=== PATIENT | female | born 2000 | race Caucasian/White ===

== ENCOUNTER 2023-01-06 00:43 | Observation (INO) | payer SELFPAY ==
[2023-01-06 01:11] LABS: BASOPHILS ABSOLUTE AUTO 0.03 K/uL (0.00-0.20); BASOPHILS PERCENT AUTO 0.3 % (0.0-1.0); EOSINOPHILS ABSOLUTE AUTO 0.29 K/uL (0.00-0.45); EOSINOPHILS PERCENT AUTO 3.3 % (0.0-6.0); HEMATOCRIT 26.6 % (37.0-47.0); HEMOGLOBIN 8.5 g/dL (12.0-16.0); IMMATURE GRAN ABSOLUTE AUTO 0.01 K/uL (0.00-0.05); IMMATURE GRAN PERCENT AUTO 0.1 % (0.0-0.4); LYMPHOCYTES ABSOLUTE AUTO 2.09 K/uL (1.00-4.80); MEAN CORPUSCULAR HEMOGLOBIN 23.2 pg (28.0-32.0); MEAN CORPUSCULAR VOLUME 72.5 fL (83.0-99.0); MEAN PLATELET VOLUME 9.9 fL (9.4-12.3); MONOCYTES ABSOLUTE AUTO 0.46 K/uL (0.00-0.80); MONOCYTES PERCENT AUTO 5.3 % (0.0-8.0); NEUTROPHILS ABSOLUTE AUTO 5.82 K/uL (1.80-7.70); PLATELET COUNT,PLT 388 K/uL (150-400); RED BLOOD CELL COUNT 3.67 M/uL (4.10-5.30)
[2023-01-06 01:36] LABS: A/G RATIO 0.9 (0.9-1.6); ALBUMIN 3.1 g/dL (3.4-5.0); BILIRUBIN TOTAL 0.2 mg/dL (0.2-1.0); CALCIUM 9.2 mg/dL (8.5-10.1); CARBON DIOXIDE,CO2 29.4 mmol/L (21.0-32.0); CREATININE 0.7 mg/dL (0.6-1.0); EST CRCL DRUG DOSING (CG) 107.01 mL/min; POTASSIUM,K 3.6 mmol/L (3.5-5.1); PROTEIN TOTAL,TP 6.7 g/dL (6.4-8.2)
[2023-01-06 01:55] LABS: APPEARANCE,URINE SLT CLOUDY; BILIRUBIN,URINE NEGATIVE (NEGATIVE); COLOR,URINE YELLOW; GLUCOSE,URINE NEGATIVE (NEGATIVE); KETONES,URINE NEGATIVE (NEGATIVE); LEUKOCYTE ESTERASE,URINE SMALL (NEGATIVE); NITRITE,URINE POSITIVE (NEGATIVE); OCCULT BLOOD,URINE MODERATE (NEGATIVE); PH,URINE 6.5 (5.0-8.0); PROTEIN,URINE NEGATIVE (NEGATIVE); UROBILINOGEN,URINE 0.2 EU/dL (<2.0)
[2023-01-06 02:03] LABS: AMORPHOUS SEDIMENT,URINE LIGHT (NEGATIVE); BACTERIA,URINE 2+ (NEGATIVE); EPITHELIAL CELLS,URINE FEW (NONE-FEW); MUCUS,URINE LIGHT (NONE-MOD); RBC,URINE 15-20 (0-2/HPF)
[2023-01-06] MEDS ORDERED: Cephalexin 500 MG Cap PO ONE (02:40)
[2023-01-06 03:26] LABS: BASOPHILS ABSOLUTE AUTO 0.05 K/uL (0.00-0.20); BASOPHILS PERCENT AUTO 0.4 % (0.0-1.0); EOSINOPHILS ABSOLUTE AUTO 0.09 K/uL (0.00-0.45); EOSINOPHILS PERCENT AUTO 0.7 % (0.0-6.0); HEMATOCRIT 24.6 % (37.0-47.0); HEMOGLOBIN 7.8 g/dL (12.0-16.0); IMMATURE GRAN ABSOLUTE AUTO 0.02 K/uL (0.00-0.05); IMMATURE GRAN PERCENT AUTO 0.2 % (0.0-0.4); LYMPHOCYTES ABSOLUTE AUTO 1.29 K/uL (1.00-4.80); LYMPHOCYTES PERCENT AUTO 10.2 % (24.0-44.0); MEAN CORPUSCULAR HEMOGLOBIN 22.9 pg (28.0-32.0); MEAN CORPUSCULAR HGB CONC 31.7 g/dL (32.0-36.0); MEAN CORPUSCULAR VOLUME 72.1 fL (83.0-99.0); MEAN PLATELET VOLUME 9.6 fL (9.4-12.3); MONOCYTES ABSOLUTE AUTO 0.61 K/uL (0.00-0.80); MONOCYTES PERCENT AUTO 4.8 % (0.0-8.0); NEUTROPHILS ABSOLUTE AUTO 10.57 K/uL (1.80-7.70); NEUTROPHILS PERCENT AUTO 83.7 % (41.0-71.0); PLATELET COUNT,PLT 358 K/uL (150-400); RED BLOOD CELL COUNT 3.41 M/uL (4.10-5.30); WHITE BLOOD CELL COUNT,WBC 12.63 K/uL (3.9-11.3)
[2023-01-06 03:56] LABS: CANDIDA DNA PROBE NEGATIVE (NEGATIVE); GARDNERELLA DNA PROBE POSITIVE (NEGATIVE); TRICHOMONAS DNA PROBE POSITIVE (NEGATIVE)
[2023-01-06] MEDS ORDERED: metroNIDAZOLE 250 MG Tab PO ONE (04:15)
[2023-01-06 04:24] LABS: C. TRACHOMATIS BY PCR NOT DETECTED; N. GONORRHOEAE BY PCR NOT DETECTED
[2023-01-06] MEDS ORDERED: metroNIDAZOLE/Normal Saline 500 MG in Premix Bag 1 BAG IV STA (06:20)
[2023-01-06] MEDS ORDERED: Sodium Chloride 0.9% 2.5 ML Syringe FLUSH PRN (06:24)
[2023-01-06] MEDS ORDERED: Sodium Chloride 0.9% 10 ML Syringe FLUSH PRN (06:24)
[2023-01-06] MEDS ORDERED: Sodium Chloride 0.9% 20 ML SDV IV PRN (06:24)
[2023-01-06 07:11] LABS: HEMATOCRIT 24.2 % (37.0-47.0); HEMOGLOBIN 7.7 g/dL (12.0-16.0); MEAN CORPUSCULAR HEMOGLOBIN 22.8 pg (28.0-32.0); MEAN CORPUSCULAR HGB CONC 31.8 g/dL (32.0-36.0); MEAN CORPUSCULAR VOLUME 71.8 fL (83.0-99.0); MEAN PLATELET VOLUME 9.7 fL (9.4-12.3); PLATELET COUNT,PLT 359 K/uL (150-400); RED BLOOD CELL COUNT 3.37 M/uL (4.10-5.30); WHITE BLOOD CELL COUNT,WBC 9.42 K/uL (3.9-11.3)
[2023-01-06 07:27] LABS: CREATININE 0.5 mg/dL (0.6-1.0); EST CRCL DRUG DOSING (CG) 149.82 mL/min; POTASSIUM,K 4.1 mmol/L (3.5-5.1)
[2023-01-06] MEDS ORDERED: Ropivacaine 0.5% 5 MG/ML 30 ML SDV ONE (07:47)
[2023-01-06] MEDS ORDERED: Propofol 200 MG/20 ML SDV ONE (07:51)
[2023-01-06] MEDS ORDERED: propofoL 50 ML ONE ×3 (07:51→09:32)
[2023-01-06] MEDS ORDERED: Bupivacaine 0.5%/EPINEPHrine 1:200,000 30 ML SDV ONE (08:05)
[2023-01-06] MEDS ORDERED: Tranexamic Acid 1,000 MG/10 ML Vial ONE (08:10)
[2023-01-06] MEDS ORDERED: Calcium Chloride 10% 1 GM/10 ML Syringe ONE (08:11)
[2023-01-06] MEDS ORDERED: Ondansetron 4 MG/2 ML SDV ONE ×3 (08:11→10:43)
[2023-01-06] MEDS ORDERED: ceFAZolin 1 GM Vial ONE ×2 (08:15)
[2023-01-06] MEDS ORDERED: Dexamethasone 4 MG/ML 5 ML MDV ONE ×2 (08:35)
[2023-01-06] MEDS ORDERED: Rocuronium Bromide 50 MG/5 ML Syringe ONE ×2 (08:35→09:24)
[2023-01-06] MEDS ORDERED: Famotidine 20 MG/2 ML SDV ONE (08:44)
[2023-01-06] MEDS ORDERED: Ketamine 500 mg/10 ML MDV ONE (08:46)
[2023-01-06] MEDS ORDERED: Metoclopramide 10 MG/2 ML SDV ONE (08:51)
[2023-01-06] MEDS ORDERED: Naloxone 0.4 MG/ML SDV IVPUSH PRN (08:54)
[2023-01-06] MEDS ORDERED: Albuterol 0.083% 2.5 MG/3 ML Neb Soln NEB PRN (08:54)
[2023-01-06] MEDS ORDERED: Morphine 2 MG/ML SYRINGE IVPUSH PRN (08:54)
[2023-01-06] MEDS ORDERED: HYDROmorphone 1 MG/ML Syringe IVPUSH PRN (08:54)
[2023-01-06] MEDS ORDERED: fentaNYL 50 MCG/ML SDV IVPUSH PRN (08:54)
[2023-01-06] MEDS ORDERED: Metoclopramide 10 MG/2 ML SDV IVPUSH PRN (08:54)
[2023-01-06] MEDS ORDERED: droPERidol 5 MG/2 ML SDV IVPUSH PRN (08:54)
[2023-01-06] MEDS ORDERED: Ondansetron 4 MG/2 ML SDV IVPUSH PRN ×2 (08:54→11:33)
[2023-01-06] MEDS ORDERED: fentaNYL 100 MCG/2 ML SDV ONE (10:16)
[2023-01-06] MEDS ORDERED: Dexmedetomidine 200 MCG/2 ML SDV ONE (10:18)
[2023-01-06] MEDS ORDERED: ePHEDrine 50 MG/ML SDV ONE (10:43)
[2023-01-06] MEDS ORDERED: Glycopyrrolate 0.2 MG/ML SDV ONE ×2 (10:43→10:44)
[2023-01-06] MEDS ORDERED: Phenylephrine HCl 0.5 MG/5 ML AMP ONE (10:44)
[2023-01-06] MEDS ORDERED: Sugammadex Sodium 200 MG/2 ML VIAL ONE (10:44)
[2023-01-06] MEDS ORDERED: EPINEPHrine 1 MG/1 ML Amp ONE (10:44)
[2023-01-06 11:08] LABS: HEMATOCRIT 28.9 % (37.0-47.0); HEMOGLOBIN 9.5 g/dL (12.0-16.0)
[2023-01-06] MEDS ORDERED: Morphine 4 MG/ML Syringe IVPUSH PRN (11:33)
[2023-01-06] MEDS ORDERED: Acetaminophen/oxyCODONE 325-5 MG Tab PO PRN ×2 (11:33)
[2023-01-06] MEDS ORDERED: Promethazine 25 MG/ML SDV IM PRN (11:33)
[2023-01-06] MEDS ORDERED: Ketorolac 30 MG/ML SDV IVPUSH PRN (11:33)
[2023-01-06] MEDS ORDERED: Ketorolac 30 MG/ML SDV IVPUSH ONE (11:33)
[2023-01-06] MEDS ORDERED: oxyCODONE 5 MG Tab PO PRN (11:41)
[2023-01-06] MEDS: Acetaminophen 500 MG Tab PO SCH ×2 (11:59→17:30)
[2023-01-06] MEDS ORDERED: Ketorolac 30 MG/ML SDV IVPUSH SCH (17:30)
== END 2023-01-06 21:11 | disposition home or self-care (01) ==
LOC: MW.ED 00:43 → MW.MS 06:12
PROVIDERS: ADMIT Obstetrics & Gynecology; ATTEND Obstetrics & Gynecology
DX: O08.0 Genital tract and pelvic infection following ectopic and molar pregnancy (principal); O00.102 Left tubal pregnancy without intrauterine pregnancy; N83.201 Unspecified ovarian cyst, right side; N83.202 Unspecified ovarian cyst, left side; Z88.2 Allergy status to sulfonamides; Z79.2 Long term (current) use of antibiotics; Z79.899 Other long term (current) drug therapy
CPT/HCPCS: 36415; 36430; 59151; 76817; 80048; 80053; 81001; 83690; 84702; 84703; 85014; 85018; 85025; 85027; 86850; 86900; 86901; 86920; 87480; 87491; 87510; 87591; 87660; 96365; 96375; 96376; 99285; A9270; G0378; J0690; J1100; J1170; J1885; J2704; J2795; J3010; J3490; J7030; P9016; 00840; 64488; 99283; J0171; J2371; J2405; J2765